=== PATIENT | male | born 1965 | race Caucasian/White ===

== ENCOUNTER 2018-03-03 19:51 | Inpatient (IN) | payer OTHER ==
[2018-03-03 20:20] VITALS: BMI 26.9
[2018-03-03] MEDS ORDERED: MELATONIN 5 MG TABLETS PO PRN (22:00)
--- NOTE | 2018-03-03 22:11 | HP ---
CIWA Score Nausea/Vomitin-No Nausea/No Vomiting Muscle Tremors: 4-Moderate,w/Arms Extend Anxiety: 4-Mod. Anxious/Guarded Agitation: 4-Moderately Restless Paroxysmal Sweats: 3 Orientation: 2-Disoriented Date<2 days Tacttile Disturbances: 1-Very Mild Itch/Numbness Auditory Disturbances: 1-Very Mild Visual Disturbances: 1-Very Mild Sensitivity Headache: 2-Mild CIWA-Ar Total Score: 22 - Admission Criteria OASAS Guidelines: Admission for Medically Managed Detox: Requires at least one of the followin. CIWA greater than 12 2. Seizures within the past 24 hours 3. Delirium tremens within the past 24 hours 4. Hallucinations within the past 24 hours 5. Acute intervention needed for co occurring medical disorder 6. Acute intervention needed for co occurring psychiatric disorder 7. Severe withdrawal that cannot be handled at a lower level of care (continued vomiting, continued diarrhea, abnormal vital signs) requiring intravenous medication and/or fluids 8. Patient presents the following: Seizures, delirium tremens or hallucinations in the past 12 hours, Acute intervention needed for co-occurring med or psych disorder Admission Criteria Met: Admission criteria met Admission ROS [facility] Chief Complaint: C/O WORSENING WITHDRAWAL SX'S. SEEKING DETOX FROM ALCOHOL Allergies/Adverse Reactions: Allergies Allergy/AdvReac Type Severity Reaction Status Date / Time No Known Allergies Allergy Verified 06/18/13 11:51 History of Present Illness: 52 Y.O. MALE WITH HX/O ALCOHOLISM AND METHAMPHETAMINE DEPENDENCE HERE FOR DETOX. CLIENT IS KNOWN TO THIS PROGRAM. LAST HERE 2013. SELF REFERRED TODAY. PRESENTING WITH C/O WORSENING WITHDRAWAL SX'S. CIWA 22. LAST DETOX/REHAB 2017 AT [facility]. CLIENT REPORTS 5 YEARS CLEAN TIME RELAPSING 6 MONTHS AGO. DENIES PAST/PRESENT SI/HI. REPORTS [facility] WHEN "IM HIGH". DENIES SEIZURE D/O. HOMELESS, PUBLIC assistance, unemployed, DENIES LEGALS. PMHX- HTN, HLD PSYCH- BIPOLAR,LICO, DEPRESSION MEDS: DEPAKOTE, SEROQUEL, AMBILIFY, LIPITOR Exam Limitations: No Limitations - Ebola screening Have you traveled outside of the country in the last 21 days: No Have you had contact with anyone from an Ebola affected area: No Have you been sick,other than usual withdrawal symptoms: No Do you have a fever: No - Review of Systems Constitutional: Chills, Loss of Appetite, Malaise, Night Sweats, Changes in sleep EENT: reports: Dental Problems (MISSING TEETH DENUTURES), Other (SORE PALATE) Respiratory: reports: No Symptoms reported Cardiac: reports: No Symptoms Reported GI: reports: Constipated, Nausea, Poor Appetite, Poor Fluid Intake : reports: No Symptoms Reported Musculoskeletal: reports: Back Pain, Joint Pain, Muscle Pain, Neck Pain Integumentary: reports: Flushing Neuro: reports: Headache, Paresthesia Endocrine: reports: No Symptoms Reported Hematology: reports: No Symptoms Reported Psychiatric: reports: Orientated x3, Anxious, Depressed Other Systems: Reviewed and Negative Patient History - Patient Medical History Hx Anemia: No Hx Asthma: No Hx Chronic Obstructive Pulmonary Disease (COPD): No Hx Cancer: No Hx Cardiac Disorders: No Hx Congestive Heart Failure: No Hx Hypertension: Yes Hx Hypercholesterolemia: Yes (LIPITOR 20MG) Hx Pacemaker: No HX Cerebrovascular Accident: No Hx Seizures: No Hx Dementia: No Hx Diabetes: No Hx Gastrointestinal Disorders: No Hx Liver Disease: No Hx Genitourinary Disorders: No Hx Sexually Transmitted Disorders: Yes (Syphilis (treated)) Hx Renal Disease (ESRD): No Hx Thyroid Disease: No Hx Human Immunodeficiency Virus (HIV): No Hx Hepatitis C: No Hx Depression: Yes Hx Suicide Attempt: No Hx Bipolar Disorder: Yes (MANIC) Hx Schizophrenia: No Other Medical History: LICO - Patient Surgical History Past Surgical History: Yes Hx Neurologic Surgery: No Hx Cataract Extraction: No Hx Cardiac Surgery: No Hx Lung Surgery: No Hx Breast Surgery: No Hx Breast Biopsy: No Hx Abdominal Surgery: Yes (LT. INGUINAL HERNIA REPAIR) Hx Appendectomy: No Hx Cholecystectomy: No Hx Genitourinary Surgery: No Hx Orthopedic Surgery: No Anesthesia Reaction: No - PPD History Previous Implant?: Yes Documented Results: Negative w/o proof Implanted On Prior [facility] Admission?: Yes Date: 06/20/13 Results: 0MM PPD to be Administered?: Yes - Smoking Cessation Smoking history: Current every day smoker Have you smoked in the past 12 months: Yes Aproximately how many cigarettes per day: 20 Cigars Per Day: 0 Hx Chewing Tobacco Use: No Initiated information on smoking cessation: Yes 'Breaking Loose' booklet given: 03/03/18 - Substance & Tx. History Hx Alcohol Use: Yes Hx Substance Use: Yes Substance Use Type: Alcohol, Tranquilizers (METH AMPHET) Hx Substance Use Treatment: Yes ( [facility]) - Substances Abused Alcohol Route: Oral Frequency: 3-6 times per week Amount used: Beer 2 x 6 pack, Vodka 2 pints Age of first use: 16 Date of Last Use: 03/03/18 Methamphetamine Route: Injection Frequency: Daily Amount used: 0.5gm -1gm Age of first use: 21 Date of Last Use: 03/03/18 Family Disease History - Family Disease History Family Disease History: Diabetes: Father (ALCOHOL,DRUG), Heart Disease: Grandparent (HTN), Other: Father, Brother (ALCOHOL,DRUG) Admission Physical Exam S - Vital Signs Vital Signs: Vital Signs - 24 hr 03/03/18 20:17 Temperature 98.9 F Pulse Rate 126 H Respiratory 18 Rate Blood Pressure 132/79 - Physical General Appearance: Yes: Appropriately Dressed, Moderate Distress, Tremorous, Irritable, Anxious, Other (FLUSHED) HEENTM: Yes: EOMI, Normocephalic, Normal Voice, ABBEY, Pharynx Normal, Other ( UPPER DENTURES WITH MISSING TEETH DRY MUCUS MEMBRANES) Respiratory: Yes: Chest Non-Tender, Lungs Clear, Normal Breath Sounds, No Respiratory Distress, No Accessory Muscle Use Neck: Yes: No masses,lesions,Nodules, Supple, Trachea in good position, Other ( TATTOO) Breast: Yes: Breast Exam Deferred Cardiology: Yes: Regular Rhythm, S1, S2, Tachycardia Abdominal: Yes: Normal Bowel Sounds, Non Tender, Soft Genitourinary: Yes: Other (NO C/O OFFERED) Back: Yes: Normal Inspection Musculoskeletal: Yes: full range of Motion, Gait Steady Extremities: Yes: Normal Range of Motion, Non-Tender, Tremors Neurological: Yes: Alert, Motor Strength 5/5, Confused (ABOUT DATE), Depressed Affect Integumentary: Yes: Warm (HOT), Other (FLUSHED) Lymphatic: Yes: Within Normal Limits - Diagnostic (1) HTN (hypertension) Current Visit: Yes Status: Acute (2) HLD (hyperlipidemia) Current Visit: Yes Status: Acute (3) At risk for dehydration due to poor fluid intake Current Visit: Yes Status: Acute (4) Substance induced mood disorder Current Visit: Yes Status: Acute (5) Homeless Current Visit: Yes Status: Acute (6) Alcohol dependence with uncomplicated withdrawal Current Visit: Yes Status: Acute (7) LICO (generalized anxiety disorder) Current Visit: Yes Status: Chronic (8) Depression Current Visit: Yes Status: Chronic Qualifiers: Depression Type: unspecified Qualified Code(s): F32.9 - Major depressive disorder, single episode, unspecified (9) Bipolar disorder Current Visit: Yes Status: Chronic Qualifiers: Active/Remission status: currently active Current bipolar episode type: depressed Current episode severity: unspecified Qualified Code(s): F31.30 - Bipolar disorder, current episode depressed, mild or moderate severity, unspecified (10) Hypercholesterolemia Current Visit: Yes Status: Chronic (11) Methamphetamine dependence Current Visit: Yes Status: Acute (12) Nicotine dependence Current Visit: Yes Status: Acute Qualifiers: Nicotine product type: cigarettes Substance use status: uncomplicated Qualified Code(s): F17.210 - Nicotine dependence, cigarettes, uncomplicated Cleared for Admission [facility] - Detox or Rehab [facility] Level of Care: Medically Managed Detox Regimen/Protocol: Sanchez[place] Claeared for Rehab Admission: No S Breath Alcohol Content Breath Alcohol Content: 0 Urine Drug Screen - Results Drug Screen Negative: No Urine Drug Screen Results: AMP-Amphetamines, MET-Methamphetamine, MDMA-Ecstasy
[2018-03-03] MEDS ORDERED: SODIUM PHOSPHATE/NA BIPHOS 133 ML ENEMA PR ONE (22:16)
[2018-03-03] MEDS ORDERED: MAGNESIUM HYDROX 2400MG/30ML ORAL SUSPENSION 30 ML CUP PO PRN (22:17)
[2018-03-03] MEDS ORDERED: MENTHOL/PHENOL 1 EACH UD MM PRN (22:17)
[2018-03-03] MEDS ORDERED: guaiFENesin/D-METHORPHAN HB 10 ML UNIT-DOSE CUPS PO PRN (22:17)
[2018-03-03] MEDS ORDERED: ACETAMINOPHEN 325 MG TABLET (FP) PO PRN (22:17)
[2018-03-03] MEDS ORDERED: LOPERAMIDE HCL 2 MG CAPSULE PO PRN (22:17)
[2018-03-03] MEDS ORDERED: chlordiazePOXIDE HCL 25 MG CAPSULE PO PRN (22:17)
[2018-03-03] MEDS ORDERED: MAG HYDROX/AL HYDROX/SIMETH 30 ML UNIT-DOSE CUP PO PRN (22:17)
[2018-03-03] MEDS ORDERED: hydrOXYzine PAMOATE 50 MG CAPSULE (FP) PO PRN (22:17)
[2018-03-03] MEDS ORDERED: IBUPROFEN 400 MG TABLET (FP) PO PRN (22:17)
[2018-03-03] MEDS ORDERED: P-EPHED 60MG/TRIPROLIDI 2.5MG TABLET PO PRN (22:17)
[2018-03-03] MEDS ORDERED: NICOTINE POLACRILEX 2 MG GUM BC PRN (22:17)
[2018-03-03] MEDS ORDERED: MAGNESIUM CITRATE 300 ML BOTTLE PO PRN (22:17)
[2018-03-04] MEDS: chlordiazePOXIDE HCL 25 MG CAPSULE PO SCH ×5 (00:22→22:05)
[2018-03-04 10:05] LABS: HEMATOCRIT 35.9 % (35.4-49); HEMOGLOBIN 11.8 GM/dL (11.7-16.9); MCH 26.7 pg (25.7-33.7); MCHC 32.9 g/dl (32.0-35.9); MEAN CELL VOLUME 81.1 fl (80-96); MEAN PLT VOLUME 7.7 fl (7.5-11.1); PLATELET COUNT 309 K/MM3 (134-434); RBC 4.43 M/mm3 (4.00-5.60); RDW 14.4 % (11.9-15.9); WHITE BLOOD COUNT 6.1 K/mm3 (4.0-10.0)
[2018-03-04 10:23] LABS: URINE APPEARANCE CLEAR; URINE BILIRUBIN NEGATIVE (<2.0 mg/dL); URINE COLOR YELLOW; URINE GLUCOSE (UA) NEGATIVE (NEGATIVE); URINE KETONE NEGATIVE (NEGATIVE); URINE LEUK ESTERASE NEGATIVE (NEGATIVE); URINE NITRITE NEGATIVE (NEGATIVE); URINE PROTEIN NEGATIVE (NEGATIVE); URINE UROBILINOGEN NEGATIVE mg/dL (0.2-1.0)
[2018-03-04] MEDS: ASPIRIN 81 MG CHEWABLE TABLETS PO SCH (10:36)
[2018-03-04] MEDS: NICOTINE 21 MG/24 HOURS TOPICAL PATCH TD SCH (10:36)
[2018-03-04] MEDS: HYDROCHLOROTHIAZIDE 25 MG TABLET (FP) PO SCH (10:36)
[2018-03-04] MEDS: PRENATAL VITAMINS W/ FOLIC ACID TABLET (FP) PO SCH (10:36)
[2018-03-04 11:09] LABS: ALBUMIN 3.9 g/dl (3.4-5.0); ALK PHOS 89 U/L (45-117); ANION GAP 11 MMOL/L (8-16); BILIRUBIN,TOTAL 1.1 mg/dL (0.2-1); BLOOD UREA NITROGEN 27 mg/dL (7-18); CALCIUM 8.8 mg/dL (8.5-10.1); CHLORIDE 98 mmol/L (98-107); CO2 28 mmol/L (21-32); GLUCOSE,RANDOM 91 mg/dL (74-106); POTASSIUM 3.2 mmol/L (3.5-5.1); SGOT/AST 68 U/L (15-37); SGPT/ALT 42 U/L (13-61); SODIUM 137 mmol/L (136-145); TOT PROT 6.9 g/dl (6.4-8.2)
--- NOTE | 2018-03-04 12:15 | PN ---
[facility] CIWA - CIWA Score Nausea/Vomitin-Mild Nausea/No Vomiting Muscle Tremors: 4-Moderate,w/Arms Extend Anxiety: 4-Mod. Anxious/Guarded Agitation: 3 Paroxysmal Sweats: 1-Minimal Palms Moist Orientation: 1-Uncertain about Date Tacttile Disturbances: 1-Very Mild Itch/Numbness Auditory Disturbances: 1-Very Mild Visual Disturbances: 0-None Headache: 2-Mild CIWA-Ar Total Score: 18 [facility] Progress Note (SOAP) Subjective: tremor sweat restlessness irritable trouble sleep at night anxiety gi distress Objective: 03/04/18 12:13 Vital Signs Temperature 99.1 F 03/04/18 09:19 Pulse Rate 105 H 03/04/18 09:19 Respiratory Rate 18 03/04/18 09:19 Blood Pressure 114/63 03/04/18 09:19 O2 Sat by Pulse Oximetry (%) Laboratory Last Values WBC 6.1 K/mm3 (4.0-10.0) 03/04/18 07:00 RBC 4.43 M/mm3 (4.00-5.60) 03/04/18 07:00 Hgb 11.8 GM/dL (11.7-16.9) 03/04/18 07:00 Hct 35.9 % (35.4-49) 03/04/18 07:00 MCV 81.1 fl (80-96) 03/04/18 07:00 MCH 26.7 pg (25.7-33.7) 03/04/18 07:00 MCHC 32.9 g/dl (32.0-35.9) 03/04/18 07:00 RDW 14.4 % (11.9-15.9) 03/04/18 07:00 Plt Count 309 K/MM3 (134-434) 03/04/18 07:00 MPV 7.7 fl (7.5-11.1) 03/04/18 07:00 Sodium 137 mmol/L (136-145) 03/04/18 07:00 Potassium 3.2 mmol/L (3.5-5.1) L 03/04/18 07:00 Chloride 98 mmol/L (98-107) 03/04/18 07:00 Carbon Dioxide 28 mmol/L (21-32) 03/04/18 07:00 Anion Gap 11 MMOL/L (8-16) 03/04/18 07:00 BUN 27 mg/dL (7-18) H 03/04/18 07:00 Creatinine 1.0 mg/dL (0.55-1.3) 03/04/18 07:00 Creat Clearance w eGFR > 60 (>60) 03/04/18 07:00 Random Glucose 91 mg/dL (74-106) 03/04/18 07:00 Calcium 8.8 mg/dL (8.5-10.1) 03/04/18 07:00 Total Bilirubin 1.1 mg/dL (0.2-1) H 03/04/18 07:00 AST 68 U/L (15-37) H 03/04/18 07:00 ALT 42 U/L (13-61) 03/04/18 07:00 Alkaline Phosphatase 89 U/L (45-117) 03/04/18 07:00 Total Protein 6.9 g/dl (6.4-8.2) 03/04/18 07:00 Albumin 3.9 g/dl (3.4-5.0) 03/04/18 07:00 Urine Color Yellow 03/04/18 08:00 Urine Appearance Clear 03/04/18 08:00 Urine pH 5.0 (5.0-8.0) 03/04/18 08:00 Ur Specific [place] 1.023 (1.010-1.035) 03/04/18 08:00 Urine Protein Negative (NEGATIVE) 03/04/18 08:00 Urine Glucose (UA) Negative (NEGATIVE) 03/04/18 08:00 Urine Ketones Negative (NEGATIVE) 03/04/18 08:00 Urine Blood Negative (NEGATIVE) 03/04/18 08:00 Urine Nitrite Negative (NEGATIVE) 03/04/18 08:00 Urine Bilirubin Negative (<2.0 mg/dL) 03/04/18 08:00 Urine Urobilinogen Negative mg/dL (0.2-1.0) 03/04/18 08:00 Ur Leukocyte Esterase Negative (NEGATIVE) 03/04/18 08:00 RPR Titer Nonreactive (NONREACTIVE) 03/04/18 07:00 lab noted low K+ Assessment: 03/04/18 12:14 withdrawal sx low K+ Plan: continue deetox K+ supplement repeat K+
[2018-03-04] MEDS: POTASSIUM CHLORIDE TABS 20 MEQ TABLET.ER (FP) PO SCH ×2 (14:33→22:05)
[2018-03-04] MEDS: ARIPiprazole 5 MG TABLET (FP) PO SCH (18:28)
[2018-03-04] MEDS ORDERED: MELATONIN 5 MG TABLETS PO PRN (18:38)
--- NOTE | 2018-03-04 18:41 | PN ---
S Progress Note Note: Patient requesting to leave AMA. States 'the system is not working for me'. Admits to being homeless. Discussed the non-compliance w/ NRT and the subsequent associated withdrawals. Provider discussed the mental cravings he is having and how they are triggering his desire to leave. Patient agreed to stay.
[2018-03-04] MEDS: ATORVASTATIN CA 40 MG TABLET (FP) PO SCH (22:05)
[2018-03-04] MEDS: THIAMINE HCL 100 MG TABLET (FP) PO SCH (22:05)
[2018-03-05] MEDS: chlordiazePOXIDE HCL 25 MG CAPSULE PO SCH ×3 (06:05→17:27)
[2018-03-05] MEDS: ASPIRIN 81 MG CHEWABLE TABLETS PO SCH (10:15)
[2018-03-05] MEDS: PRENATAL VITAMINS W/ FOLIC ACID TABLET (FP) PO SCH (10:15)
[2018-03-05] MEDS: POTASSIUM CHLORIDE TABS 20 MEQ TABLET.ER (FP) PO SCH ×2 (10:15→22:39)
[2018-03-05] MEDS: HYDROCHLOROTHIAZIDE 25 MG TABLET (FP) PO SCH (10:15)
[2018-03-05] MEDS: ARIPiprazole 5 MG TABLET (FP) PO SCH (10:15)
--- NOTE | 2018-03-05 10:28 | PN ---
MAG[facility] Progress Note Note: patient reported that he has bipolar treated with depakote since 02/27/18 last dose of taking depakote unknown psychiatric referral with depakote serum level pending
[2018-03-05] MEDS: NICOTINE 21 MG/24 HOURS TOPICAL PATCH TD SCH (11:34)
--- NOTE | 2018-03-05 12:15 | PN ---
S CIWA - CIWA Score Nausea/Vomitin Muscle Tremors: 3 Anxiety: 0-No Anxiety, at Ease Agitation: 0-Normal Activity Paroxysmal Sweats: 3 Orientation: 0-Oriented Tacttile Disturbances: 2-Mild Itch/Numbness/Burn Auditory Disturbances: 0-None Visual Disturbances: 2-Mild Sensitivity Headache: 0-None Present CIWA-Ar Total Score: 13 [facility] Progress Note (SOAP) Subjective: Body Aches, Nausea, Tremors, Fatigue, Sweating. Objective: PATIENT A & O X 3. IN NO ACUTE DISTRESS. 03/05/18 12:15 Vital Signs Temperature 97.7 F 03/05/18 09:59 Pulse Rate 101 H 03/05/18 09:59 Respiratory Rate 18 03/05/18 09:59 Blood Pressure 134/74 03/05/18 09:59 O2 Sat by Pulse Oximetry (%) Laboratory Tests 03/04/18 03/04/18 03/04/18 07:00 07:00 07:00 WBC 6.1 RBC 4.43 Hgb 11.8 Hct 35.9 MCV 81.1 MCH 26.7 MCHC 32.9 RDW 14.4 Plt Count 309 MPV 7.7 Sodium 137 Potassium 3.2 L Chloride 98 Carbon Dioxide 28 Anion Gap 11 BUN 27 H Creatinine 1.0 Creat Clearance w eGFR > 60 Random Glucose 91 Calcium 8.8 Total Bilirubin 1.1 H AST 68 H ALT 42 Alkaline Phosphatase 89 Total Protein 6.9 Albumin 3.9 Urine Color Urine Appearance Urine pH Ur Specific [place] Urine Protein Urine Glucose (UA) Urine Ketones Urine Blood Urine Nitrite Urine Bilirubin Urine Urobilinogen Ur Leukocyte Esterase RPR Titer Nonreactive 03/04/18 08:00 WBC RBC Hgb Hct MCV MCH MCHC RDW Plt Count MPV Sodium Potassium Chloride Carbon Dioxide Anion Gap BUN Creatinine Creat Clearance w eGFR Random Glucose Calcium Total Bilirubin AST ALT Alkaline Phosphatase Total Protein Albumin Urine Color Yellow Urine Appearance Clear Urine pH 5.0 Ur Specific [place] 1.023 Urine Protein Negative Urine Glucose (UA) Negative Urine Ketones Negative Urine Blood Negative Urine Nitrite Negative Urine Bilirubin Negative Urine Urobilinogen Negative Ur Leukocyte Esterase Negative RPR Titer LABS NOTED. Assessment: 03/05/18 12:15 WITHDRAWAL SYMPTOMS. HYPOKALEMIA. 03/05/18 12:16 Plan: WITHDRAWAL SYMPTOMS. INCREASE DAILY PO FLUID INTAKE. CONTINUE K-DUR.
--- NOTE | 2018-03-05 15:49 | CONSULT ---
[facility] Psychiatric Consult - Data Date of interview: 03/05/18 Admission source: [facility] Identifying data: Patient is a 52 year old single male, without children, unemployed, homeless, and not currently receiving financial assistance. This is one of multiple admissions for patient. Patient admitted to for alcohol and methamphetamine dependence. Substance Abuse History: Smoking Cessation. Smoking history: Current every day smoker. Have you smoked in the past 12 months: Yes. Aproximately how many cigarettes per day: 20. Cigars Per Day: 0. Hx Chewing Tobacco Use: No. Initiated information on smoking cessation: Yes. 'Breaking Loose' booklet given : 03/03/18. - Substance & Tx. History. Hx Alcohol Use: Yes. Hx Substance Use : Yes. Substance Use Type: Alcohol, Tranquilizers (METH AMPHET). Hx Substance Use Treatment: Yes ([facility]). - Substances Abused. Alcohol. Route: Oral. Frequency: 3-6 times per week. Amount used: Beer 2 x 6 pack, Vodka 2 pints. Age of first use: 16. Date of Last Use: 03/03/18. Methamphetamine. Route: Injection. Frequency: Daily. Amount used: 0.5gm -1gm. Age of first use: 21. Date of Last Use: 03/03/18 Medical History: hypercholesteroelmia, hypertension, h/o syphilis (treated), Left inguinal hernia repair Psychiatric History: Patient reports h/o approximately five psychiatric hospitalizations, most recently in November of 2017 at [facility] to address paranoia and hallucinations secondary to drug induced psychosis. Patient has also been hospitalized at [facility] and at hospitals in the [facility]. Patient is receiving outpatient psychiatric care at [facility] addiction/recovery outpatient services. Diagnosis of Bipolar disorder and Generalized anxiety disorder. Patient is prescribed Abilify 5mg daily + Depakote 250mg daily + 500mg HS + Seroquel 50mg HS. Patient denies h/o suicide attempt. At present, Mr. Herrera reports stable mood. Physical/Sexual Abuse/Trauma History: denies. Mental Status Exam - Mental Status Exam Alert and Oriented to: Time, Place, Person Cognitive Function: Good Patient Appearance: Well Groomed Mood: Euthymic Affect: Appropriate Patient Behavior: Appropriate, Cooperative Speech Pattern: Clear Voice Loudness: Normal Thought Process: Intact, Goal Oriented Thought Disorder: Not Present Hallucinations: Denies Suicidal Ideation: Denies Homicidal Ideation: Denies Insight/Judgement: Poor Sleep: Poorly Appetite: Fair Muscle strength/Tone: Normal Gait/Station: Normal Psychiatric Findings - Problem List ([place] 1, 2,3) (1) Alcohol dependence with uncomplicated withdrawal Current Visit: Yes Status: Acute (2) Methamphetamine dependence Current Visit: Yes Status: Acute (3) Bipolar disorder Current Visit: Yes Status: Chronic Qualifiers: Active/Remission status: currently active Current bipolar episode type: depressed Current episode severity: unspecified Qualified Code(s): F31.30 - Bipolar disorder, current episode depressed, mild or moderate severity, unspecified (4) LICO (generalized anxiety disorder) Current Visit: Yes Status: Chronic (5) Nicotine dependence Current Visit: Yes Status: Chronic Qualifiers: Nicotine product type: cigarettes Substance use status: uncomplicated Qualified Code(s): F17.210 - Nicotine dependence, cigarettes, uncomplicated - Initial Treatment Plan Initial Treatment Plan: Psychoeducation provided. Detoxification in progress. Will order Depakote 250mg daily + 500mg HS + Seroquel 50mg HS. Abilify 5mg ordered [address] Rhodes. Valproic acid level : 20.7. Benefits and side efffects discussed. Verbal consent given.
[2018-03-05] MEDS ORDERED: QUEtiapine FUMARATE 50 MG TABLET PO SCH (22:00)
[2018-03-05] MEDS ORDERED: DIVALPROEX SODIUM 500 MG TABLET E.C. PO SCH (22:00)
[2018-03-05] MEDS: chlordiazePOXIDE 5 MG CAPSULE PO SCH (22:39)
[2018-03-05] MEDS: ATORVASTATIN CA 40 MG TABLET (FP) PO SCH (22:39)
[2018-03-05] MEDS: THIAMINE HCL 100 MG TABLET (FP) PO SCH (22:39)
[2018-03-06] MEDS: chlordiazePOXIDE 5 MG CAPSULE PO SCH ×3 (05:33→18:15)
[2018-03-06 09:17] VITALS: PULSE 103
[2018-03-06] MEDS ORDERED: DIVALPROEX SODIUM 250 MG TABLET E.C. PO SCH (10:00)
[2018-03-06] MEDS: POTASSIUM CHLORIDE TABS 20 MEQ TABLET.ER (FP) PO SCH (10:56)
[2018-03-06] MEDS: HYDROCHLOROTHIAZIDE 25 MG TABLET (FP) PO SCH (10:56)
[2018-03-06] MEDS: PRENATAL VITAMINS W/ FOLIC ACID TABLET (FP) PO SCH (10:56)
[2018-03-06] MEDS: ASPIRIN 81 MG CHEWABLE TABLETS PO SCH (10:56)
[2018-03-06] MEDS: NICOTINE 21 MG/24 HOURS TOPICAL PATCH TD SCH (10:58)
[2018-03-06] MEDS: ARIPiprazole 5 MG TABLET (FP) PO SCH (10:58)
--- NOTE | 2018-03-06 11:39 | EKG ---
Test Reason : Blood Pressure : / mmHG Vent. Rate : 110 BPM Atrial Rate : 110 BPM P-R Int : 134 ms QRS Dur : 092 ms QT Int : 374 ms P-R-T Axes : 062 015 057 degrees QTc Int : 506 ms SINUS TACHYCARDIA VOLTAGE CRITERIA FOR LEFT VENTRICULAR HYPERTROPHY NONSPECIFIC T WAVE ABNORMALITY ABNORMAL ECG NO PREVIOUS ECGS AVAILABLE Confirmed by ANN RIDLEY MD ([id number]) on 03/06/2018 11:39:29 AM Referred By: Confirmed By:ANN RIDLEY MD
[2018-03-06 13:15] VITALS: BP 129/78; TEMP 98.6
--- NOTE | 2018-03-06 17:05 | PN ---
[facility] Progress Note (SOAP) Subjective: Fatigue, Sweating, Tremors. Objective: PATIENT A & O X 3. IN NO ACUTE DISTRESS. 03/06/18 17:06 Vital Signs Temperature 98.6 F 03/06/18 13:14 Pulse Rate 103 H 03/06/18 13:14 Respiratory Rate 18 03/06/18 13:14 Blood Pressure 129/78 03/06/18 13:14 O2 Sat by Pulse Oximetry (%) Laboratory Tests 03/04/18 03/04/18 03/04/18 07:00 07:00 07:00 WBC 6.1 RBC 4.43 Hgb 11.8 Hct 35.9 MCV 81.1 MCH 26.7 MCHC 32.9 RDW 14.4 Plt Count 309 MPV 7.7 Sodium 137 Potassium 3.2 L Chloride 98 Carbon Dioxide 28 Anion Gap 11 BUN 27 H Creatinine 1.0 Creat Clearance w eGFR > 60 Random Glucose 91 Calcium 8.8 Total Bilirubin 1.1 H AST 68 H ALT 42 Alkaline Phosphatase 89 Total Protein 6.9 Albumin 3.9 Urine Color Urine Appearance Urine pH Ur Specific [place] Urine Protein Urine Glucose (UA) Urine Ketones Urine Blood Urine Nitrite Urine Bilirubin Urine Urobilinogen Ur Leukocyte Esterase Valproic Acid RPR Titer Nonreactive 03/04/18 03/05/18 03/06/18 08:00 11:15 07:00 WBC RBC Hgb Hct MCV MCH MCHC RDW Plt Count MPV Sodium Potassium 4.1 Chloride Carbon Dioxide Anion Gap BUN Creatinine Creat Clearance w eGFR Random Glucose Calcium Total Bilirubin AST ALT Alkaline Phosphatase Total Protein Albumin Urine Color Yellow Urine Appearance Clear Urine pH 5.0 Ur Specific [place] 1.023 Urine Protein Negative Urine Glucose (UA) Negative Urine Ketones Negative Urine Blood Negative Urine Nitrite Negative Urine Bilirubin Negative Urine Urobilinogen Negative Ur Leukocyte Esterase Negative Valproic Acid 20.7 L RPR Titer LABS NOTED. Assessment: 03/06/18 17:06 WITHDRAWAL SYMPTOMS. Plan: CONTINUE DETOX. INCREASE DAILY PO FLUID INTAKE. ENCOURAGE AMBULATION.
[2018-03-06] MEDS ORDERED: chlordiazePOXIDE HCL 10 MG CAPSULE PO SCH (23:00)
== END 2018-03-06 16:45 | disposition left against medical advice (07) | DRG 770 ==
LOC: YASAS 19:51 → Y3N 22:27
PROC: HZ2ZZZZ Detoxification Services for Substance Abuse Treatment (ICD-10-PCS; principal; 2018-03-03)
DX: F10.230 Alcohol dependence with withdrawal, uncomplicated (principal); F15.20 Other stimulant dependence, uncomplicated; F17.210 Nicotine dependence, cigarettes, uncomplicated; F19.24 Other psychoactive substance dependence with psychoactive substance-induced mood disorder; F41.1 Generalized anxiety disorder; I10 Essential (primary) hypertension; E78.5 Hyperlipidemia, unspecified; R63.8 Other symptoms and signs concerning food and fluid intake; E87.6 Hypokalemia; Z87.438 Personal history of other diseases of male genital organs; Z59.0 Homelessness
CPT/HCPCS: 36415; 80053; 80164; 81003; 84132; 85027; 86593; 93005; 93010

== ENCOUNTER 2018-03-06 17:24 | Observation (INO) | payer OTHER ==
[2018-03-06 17:36] VITALS: BMI 26.6
[2018-03-06] MEDS ORDERED: SODIUM CHLORIDE 1,000 ML IV STA (20:05)
--- NOTE | 2018-03-06 20:07 | PDOC ---
History of Present Illness - General Chief Complaint: Psychiatric Stated Complaint: REFILL MED/PSYCH Time Seen by Provider: 03/06/18 19:11 - History of Present Illness Initial Comments: 52-year-old male with PMH of hypertension, depression, and substance abuse presenting himself for suicidal ideation. Patient states that he was at [facility] detox for the past four days for methamphetamine and alcohol use. Last used methamphetamine while he was at the facility two or three days ago. Last used alcohol five days ago, about five pints of vodka. Upon hearing that he would be discharged from [facility] tomorrow morning, patient checked himself out around 4:30pm. His housing social studies teacher, Rashida Hernandez, learned of his situation and out of concern for him paid for a cab for him to get to this ED. Patient states his suicidal plan is to get on the streets and take lots of pills that he would be able to obtain from a drug dealer. Endorses poor sleep, loss of interest in things he used to enjoy, feelings of guilt, low energy, and low concentration. Reports normal appetite. Before [facility], patient was attending an intensive outpatient program at [facility] for substance abuse but was unable to be placed at a senior care house and so he went to detox. No fevers, chills, chest pain, or shortness of breath. Past History - Past Medical History Allergies/Adverse Reactions: Allergies Allergy/AdvReac Type Severity Reaction Status Date / Time No Known Allergies Allergy Verified 03/06/18 17:29 Home Medications: Ambulatory Orders RX: Aripiprazole [Abilify -] 5 mg PO DAILY 03/03/18 RX: Aspirin 81 mg PO DAILY 03/03/18 RX: Atorvastatin Ca [Lipitor] 40 mg PO HS 03/03/18 RX: Hydrochlorothiazide 25 mg PO DAILY 03/03/18 RX: Divalproex [Depakote -] 250 mg PO DAILY 03/05/18 RX: Divalproex [Depakote -] 500 mg PO HS 03/05/18 RX: Quetiapine Fumarate [Seroquel -] 50 mg PO HS 03/05/18 Anemia: No Asthma: No Cancer: No Cardiac Disorders: No CVA: No COPD: No CHF: No Dementia: No Diabetes: No GI Disorders: No Disorders: No HTN: Yes Hypercholesterolemia: Yes (LIPITOR 20MG) Kidney Stones: No Liver Disease: No Seizures: No Thyroid Disease: No - Surgical History Abdominal Surgery: Yes (LT. INGUINAL HERNIA REPAIR) Appendectomy: No Cardiac Surgery: No Cholecystectomy: No Lung Surgery: No Neurologic Surgery: No Orthopedic Surgery: No - Reproductive History Testicular Surgery: No - Suicide/Smoking/Psychosocial Hx Smoking History: Unknown if ever smoked Have you smoked in the past 12 months: Yes Number of Cigarettes Smoked Daily: 20 Cigars Per Day: 0 'Breaking Loose' booklet given: 03/03/18 Hx Alcohol Use: Yes Drug/Substance Use Hx: Yes (crystal meth, alcohol) Substance Use Type: Alcohol, Tranquilizers (METH AMPHET) Hx Substance Use Treatment: Yes ([facility]) Review of Systems - Review of Systems Comments:: Constitutional: no fever, no chills HEENT: no throat pain, no dysphagia Cardiovascular: no chest pain, no palpitations Respiratory: +cough, no shortness of breath Gastrointestinal: no abdominal pain, +nausea Genitourinary: no dysuria, no frequency Musculoskeletal: no myalgia, no arthralgia Skin: no rash, no itching Psych: +suicidal ideation, no homicidal ideation *Physical Exam - Vital Signs Last Vital Signs Temp Pulse Resp BP Pulse Ox 98.3 F 111 H 20 167/99 99 03/06/18 17:34 03/06/18 17:34 03/06/18 17:34 03/06/18 17:34 03/06/18 17:34 - Physical Exam Comments: General: Awake, alert, and fully oriented, in no acute distress Head: No signs of trauma Eyes: EOMI, sclera anicteric ENT: Moist mucus membranes Neck: Normal ROM, supple Lungs: Lungs clear, Normal breath sounds Cardio: Regular rhythm, S1 and S2 present Abdomen: Soft, nontender. No guarding, no rebound, no masses Extremities: Normal range of motion, Distal pulses present SKIN: Warm, Dry, normal turgor Neurologic: Cranial nerves II through XII grossly intact. Normal speech Moderate Sedation - Procedure Monitoring Vital Signs: Procedure Monitoring Vital Signs Temperature 98.3 F 03/06/18 17:34 Pulse Rate 111 H 03/06/18 17:34 Respiratory Rate 20 03/06/18 17:34 Blood Pressure 167/99 03/06/18 17:34 O2 Sat by Pulse Oximetry (%) 99 03/06/18 17:34 ED Treatment Course - LABORATORY CBC & Chemistry Diagram: 03/06/18 20:17 03/06/18 20:17 Medical Decision Making - Medical Decision Making 52-year-old male with PMH of hypertension, depression, and substance abuse presenting himself for suicidal ideation. -Paged psychiatry -Updated patient regarding observation status and since we do not have a dedicated psychiatry unit, he will be staying in the ED. Patient voiced discomfort with the stretcher he is laying on and expressed a desire to leave the hospital since he is so uncomfortable: "I need to get out of here." I explained to the patient that he is not safe to discharge. -No leukocytosis or anemia. TSH normal. UA negative for infection. UTox positive for amphetamines and benzodiazepines. -Tylenol given for patient's right arm pain 03/06/18 22:00 EKG: rate 108, QTc 447, Sinus tachycardia Patient sleeping in stretcher. 03/07/18 03:20 *DC/Admit/Observation/Transfer Diagnosis at time of Disposition: Suicidal ideation - Discharge Dispostion Condition at time of disposition: Good - Referrals - Patient Instructions - Post Discharge Activity
[2018-03-06 21:05] LABS: BASO % 0.7 % (0-2.0); HEMATOCRIT 36.7 % (35.4-49); HEMOGLOBIN 12.6 GM/dL (11.7-16.9); LYMPH % 27.7 % (8-40); MCHC 34.5 g/dl (32.0-35.9); MEAN CELL VOLUME 81.2 fl (80-96); MEAN PLT VOLUME 7.4 fl (7.5-11.1); NEUT % 62.6 % (42.8-82.8); PLATELET COUNT 359 K/MM3 (134-434); RBC 4.52 M/mm3 (4.00-5.60); RDW 14.3 % (11.9-15.9); WHITE BLOOD COUNT 8.1 K/mm3 (4.0-10.0)
[2018-03-06 21:31] LABS: ALBUMIN 3.5 g/dl (3.4-5.0); ALK PHOS 97 U/L (45-117); ANION GAP 7 MMOL/L (8-16); BILIRUBIN,TOTAL 0.2 mg/dL (0.2-1); BLOOD UREA NITROGEN 14 mg/dL (7-18); CALCIUM 8.6 mg/dL (8.5-10.1); CHLORIDE 104 mmol/L (98-107); CO2 27 mmol/L (21-32); CREATININE 0.8 mg/dL (0.55-1.3); GLUCOSE,RANDOM 130 mg/dL (74-106); POTASSIUM 4.2 mmol/L (3.5-5.1); SGOT/AST 24 U/L (15-37); SGPT/ALT 39 U/L (13-61); SODIUM 138 mmol/L (136-145); TOT PROT 6.8 g/dl (6.4-8.2)
--- NOTE | 2018-03-06 21:39 | PDOC ---
Attending Attestation - Resident Resident Name: Magaly Callejas - ED Attending Attestation I have performed the following: I have examined & evaluated the patient, The case was reviewed & discussed with the resident, I agree w/resident's findings & plan, Exceptions are as noted - HPI HPI: 03/06/18 21:21 The patient is a 52-year-old male with a significant past medical history of hypertension, depression, and substance abuse who presents to the ED for suicidal ideation. He states he was at [facility] detox for the past four days for methamphetamine and alcohol use, and after learning about his discharge from [facility] tomorrow morning, patient endorsed to [facility] staff that he had a plan to take lots of pills and kill himself. Pt denies any history of SA. The patient denies chest pain, shortness of breath, headache and dizziness. The patient denies fever, chills, nausea, vomit, diarrhea and constipation. The patient denies dysuria, frequency, urgency and hematuria. Allergies: NKDA - Physicial Exam PE: 03/06/18 21:22 GENERAL: Awake, alert, and fully oriented, in no acute distress. HEAD: No signs of trauma EYES: PERRLA, EOMI, sclera anicteric, conjunctiva clear ENT: Auricles normal inspection, hearing grossly normal, nares patent, oropharynx clear without exudates. Moist mucosa NECK: Nontender, no stepoffs, Normal ROM, supple, no lymphadenopathy, JVD, or masses LUNGS: Breath sounds equal, clear to auscultation bilaterally. No wheezes, and no crackles HEART: Regular rate and rhythm, normal S1 and S2, no murmurs, rubs or gallops ABDOMEN: Soft, nontender, normoactive bowel sounds. No guarding, no rebound. No masses EXTREMITIES: Normal range of motion, no edema. No clubbing or cyanosis. No cords, erythema, or tenderness NEUROLOGICAL: Cranial nerves II through XII intact. 5/5 strength and sensation in all extremities, Normal speech, normal gait, normal cerebellar function SKIN: Warm, Dry, normal turgor, no rashes or lesions noted. - Medical Decision Making 03/06/18 21:39 52 M recently admitted to [facility] for detox, who, upon being informed of his discharge tomorrow, began to endorse suicidal ideation. - Labs - Medical clearance - Psych consult 03/07/18 02:10 Labs wnl Pt medically cleared. Awaiting psych eval. Pt signed out to overnight team, pending psych eval.
[2018-03-06] MEDS ORDERED: ACETAMINOPHEN 1000 MG/100 ML VIAL (NON FORMULARY) IVPB ONE (22:26)
[2018-03-06] MEDS ORDERED: ACETAMINOPHEN INJECTION 100 ML IVPB ONE (22:28)
[2018-03-06 23:07] LABS: URINE APPEARANCE CLEAR; URINE BILIRUBIN NEGATIVE (<2.0 mg/dL); URINE COLOR LTYELLOW; URINE GLUCOSE (UA) NEGATIVE (NEGATIVE); URINE KETONE NEGATIVE (NEGATIVE); URINE LEUK ESTERASE NEGATIVE (NEGATIVE); URINE NITRITE NEGATIVE (NEGATIVE); URINE PROTEIN NEGATIVE (NEGATIVE); URINE UROBILINOGEN NEGATIVE mg/dL (0.2-1.0)
[2018-03-06 23:38] LABS: COCAINE, UR NEGATIVE ng/ml (CUTOFF=300); METHADONE, UR NEGATIVE ng/ml (CUTOFF=300); OPIATES, URI NEGATIVE ng/ml (CUTOFF=300); PHENCYCLIDINE,URINE NEGATIVE ng/ml (CUTOFF=25); URINE BARBITURATES NEGATIVE ng/ml (CUTOFF=200)
[2018-03-06 23:41] LABS: URINE AMPHETAMINES POSITIVE ng/ml (CUTOFF=500)
[2018-03-06 23:42] LABS: URINE BENZODIAZEPINES POSITIVE ng/ml (CUTOFF=200)
--- NOTE | 2018-03-07 07:20 | PDOC ---
*Physical Exam - Vital Signs Last Vital Signs Temp Pulse Resp BP Pulse Ox 97.8 F 92 H 20 123/76 98 03/07/18 05:38 03/07/18 05:38 03/07/18 05:38 03/07/18 05:38 03/07/18 05:38 ED Treatment Course - LABORATORY CBC & Chemistry Diagram: 03/06/18 20:17 03/06/18 20:17 - ADDITIONAL ORDERS Additional order review: Laboratory Results 03/06/18 03/06/18 03/06/18 20:17 20:17 20:17 Sodium Potassium Chloride Carbon Dioxide Anion Gap BUN Creatinine Creat Clearance w eGFR Random Glucose Calcium Total Bilirubin AST ALT Alkaline Phosphatase Total Protein Albumin TSH 0.89 Urine Color Ltyellow Urine Appearance Clear Urine pH 7.0 D Ur Specific [place] 1.014 Urine Protein Negative Urine Glucose (UA) Negative Urine Ketones Negative Urine Blood Negative Urine Nitrite Negative Urine Bilirubin Negative Urine Urobilinogen Negative Ur Leukocyte Esterase Negative Opiates Screen Negative Methadone Screen Negative Barbiturate Screen Negative Phencyclidine Screen Negative Ur Amphetamines Screen Positive A* MDMA (Ecstasy) Screen Negative Benzodiazepines Screen Positive A* Cocaine Screen Negative U Marijuana (THC) Screen Negative Alcohol, Quantitative < 3.0 03/06/18 20:17 Sodium 138 Potassium 4.2 Chloride 104 Carbon Dioxide 27 Anion Gap 7 L BUN 14 Creatinine 0.8 Creat Clearance w eGFR > 60 Random Glucose 130 H Calcium 8.6 Total Bilirubin 0.2 AST 24 ALT 39 Alkaline Phosphatase 97 Total Protein 6.8 Albumin 3.5 TSH Urine Color Urine Appearance Urine pH Ur Specific [place] Urine Protein Urine Glucose (UA) Urine Ketones Urine Blood Urine Nitrite Urine Bilirubin Urine Urobilinogen Ur Leukocyte Esterase Opiates Screen Methadone Screen Barbiturate Screen Phencyclidine Screen Ur Amphetamines Screen MDMA (Ecstasy) Screen Benzodiazepines Screen Cocaine Screen U Marijuana (THC) Screen Alcohol, Quantitative 03/06/18 20:17 RBC 4.52 MCV 81.2 MCHC 34.5 RDW 14.3 MPV 7.4 L Neutrophils % 62.6 Lymphocytes % 27.7 Monocytes % 6.0 Eosinophils % 3.0 Basophils % 0.7 - Medications Given in the ED: ED Medications Discontinued Medications Generic Name Dose Route Start Last Admin Trade Name Freq PRN Reason Stop Dose Admin Acetaminophen 1,000 mg 03/06/18 22:26 03/06/18 22:33 Ofirmev Injection - IVPB 03/06/18 22:27 1,000 mg ONCE ONE Administration Sodium Chloride 1,000 mls @ 1,000 mls/hr 03/06/18 20:05 03/06/18 20:42 Normal Saline - IV 03/06/18 21:04 1,000 mls/hr ASDIR STA Administration Medical Decision Making - Medical Decision Making 03/07/18 07:[address] Callejas. Patient is a 52 yo male w/ pmh of HTN, Depression, substance abuse presenting for suicidal ideation. Patient reports being at detox for 4 days for meth/alcohol use (last 2-3 days ago). Last alcohol use 5 days ago. Patient checked himself out of detox at 1630 yesterday. Reports he now plans to "take lots of pills" from drug dealer to harm himself. Patient currently awaiting evaluation by psych who is aware. 03/07/18 11:09 Admitting patient for obs as has been in ED for 17+ hours. *DC/Admit/Observation/Transfer Diagnosis at time of Disposition: Suicidal ideation - Discharge Dispostion Decision to Admit order: Yes - Referrals - Patient Instructions - Post Discharge Activity Forms/Work/School Notes: My Personal Safety Plan
--- NOTE | 2018-03-07 08:40 | EKG ---
Test Reason : Blood Pressure : / mmHG Vent. Rate : 108 BPM Atrial Rate : 108 BPM P-R Int : 134 ms QRS Dur : 088 ms QT Int : 334 ms P-R-T Axes : 052 013 043 degrees QTc Int : 447 ms SINUS TACHYCARDIA OTHERWISE NORMAL ECG WHEN COMPARED WITH ECG OF 04-MAR-2018 07:04, NO SIGNIFICANT CHANGE WAS FOUND Confirmed by ANN RIDLEY MD ([id number]) on 03/07/2018 8:40:42 AM Referred By: Confirmed By:ANN RIDLEY MD
[2018-03-07 11:42] VITALS: BP 110/66; PULSE 95; TEMP 98.1
[2018-03-07] MEDS ORDERED: DIVALPROEX SODIUM 250 MG TABLET E.C. PO ONE (12:17)
[2018-03-07] MEDS ORDERED: ARIPiprazole 5 MG TABLET (FP) PO ONE (12:17)
[2018-03-07] MEDS ORDERED: ASPIRIN COATED 81 MG TABLET.EC PO ONE (12:17)
[2018-03-07] MEDS ORDERED: HYDROCHLOROTHIAZIDE 25 MG TABLET (FP) PO ONE (12:17)
[2018-03-07] MEDS ORDERED: SERTRALINE HCL 50 MG TABLET (FP) ONE (12:22)
[2018-03-07] MEDS ORDERED: ASPIRIN 81 MG CHEWABLE TABLETS ONE (12:22)
[2018-03-07] MEDS ORDERED: HYDROCHLOROTHIAZIDE 25 MG TABLET (FP) ONE (12:22)
[2018-03-07] MEDS ORDERED: ARIPiprazole 5 MG TABLET (FP) ONE (12:23)
[2018-03-07] MEDS ORDERED: DIVALPROEX SODIUM 125 MG TABLET E.C. ONE ×2 (12:23→12:27)
--- NOTE | 2018-03-07 13:25 | PN ---
Teaching Attending Note Name of Resident: Darrell Tsang ATTENDING PHYSICIAN STATEMENT I saw and evaluated the patient. I reviewed the resident's note and discussed the case with the resident. I agree with the resident's findings and plan as documented. SUBJECTIVE: CC: very depressed HPI: 52 y/o man with h/o depression, bipolar, HTN, HLP, polysubstance abuse, who left [facility]MA from [facility] yesterday and came to [facility] for SI. He states he is very depressed. He is homeless [facility] ( while [facility] records indicate that he was given all his psych meds) . he was getting detox and reached librium of 15 mg when he left AMA. he stated that he had thoughts of hurting himself , but now he has no thoughts of hurting or killing himself. he had a drink yesterday ( pint of Vodka) . he claims he is shaky and wants librium OBJECTIVE: NAD . awake, alert , oriented and cooperative. started using the "F" word when Lina Carter told him he did not need inpatient Psych , and that he is homeless he should not go to the streets CV: RRR, NO MRG Lungs: CTAB ABd: soft, ND, minimal discomfort in periumbilical area , Nl BS Ext : no edema . No tremor HEENT: MMM, round pupils, no facial droop. labs and urine tox reviewed ASSESSMENT AND PLAN: 52 y/o man with h/o depression, bipolar, HTN, HLP, polysubstance abuse, who left [facility]MA from [facility] yesterday and came to [facility] for SI. 1- SI : cleared by Psyc as non danger to himself. case d/w Dr. Carter. will ask him to continue his out pt meds and follow with [facility] where he gets his psych care. 2- HTN: cont med of HCTZ 3- Alcohol abuse: no signs or sx of withdrawal. drug seeking behaviour ( claims shaking and wants libium ) - last drink yesterday 4- Dispo : dc home
[2018-03-07] MEDS ORDERED: HEPARIN NA (PORCINE) 5,000 UNITS/ML 1ML VIAL SQ SCH (13:30)
--- NOTE | 2018-03-07 13:34 | CON.PSY ---
Psychiatry Consult Chief Complaint: dorothea lied about not grttimg his Psych mesat [facility] while being detoxed. Patrient also reported that he did notv complete detox. patient however completed detox and wass given his Psych meds. History of Bipolar Disorder on Abilify and Depakote. - Previous Psychiatric Treatment Outpatient: Less than 6 mos ago Inpatient: One prior admission - Previous Substance Abuse Treatment Inpatient: Within the last 12 months - Reason for Previous Treatment Reason for Previous Treatment: Biploar Illness, Alcohol Abuse - Allergies Allergies: Allergies Allergy/AdvReac Type Severity Reaction Status Date / Time No Known Allergies Allergy Verified 03/06/18 17:29 - Current Living Status Usual Living Arrangement: Alone - Current Mental Status Evaluation Appearance: Well Groomed Attitude: Cooperative - Affect Affect: Constrictive Appropriateness: Appropriate to Content - Mood Mood: Euthymic - Speech/Language Expressive: Coherent - Psychomotor Activity Psychomotor Activity: Normal - Thought Process Thought Process: Intact - Thought Content Hallucinations: Absent Delusions: Absent - Self Perception Self Perception: No Impairment - Cognition Attention: Alert Orientation: Time Memory, Immediate Recall: Intact Memory, Short Term: 3/3 Memory, Remote with Promptin/3 - Concentration Serial Sevens Intact: Yes Simple Calculations Intact: Yes - Abstraction Proverb Interpretation: Intact Judgement: Minimally Impaired - Insight Insight: Intact - Impulse Control Impulse Control: Minimally Impaired - Suicidal Ideation Suicidal Ideation: No - Homicidal Ideation Homicidal Ideation: No Assessment/Plan 1) Marquis is not suicidal or Homivcidal at this time. 2) discharge from ER when medically stable. 3) Follow up at [facility].
--- NOTE | 2018-03-07 13:47 | HP ---
CHIEF COMPLAINT: suicidal ideation PCP: HISTORY OF PRESENT ILLNESS: Pt is a 52 y/o M with Hx bipolar depression and substance abuse who presented to ED from [facility] for suicidality. Pt was almost done with his detox when he started expressing desire to hurt himself. On my interview, pt expressed desire to hurt himself. Denies plan. Denies desire to hurt others. No other complaints/issues. Pt denies fever chills, nausea, vomiting, diarrhea, pain. ER course was notable for: (1) NS, home meds (2) (3) Recent Travel: denies PAST MEDICAL HISTORY: HTN, Bipolar depression, Substance abuse, HLD PAST SURGICAL HISTORY: denies Social History: Smokin cig/d since teenager Alcohol: denies Drugs: "uppers" including amphetamines Family History: father with lung CA at 74 and bipolar depression Allergies No Known Allergies Allergy (Verified 03/06/18 17:29) HOME MEDICATIONS: Home Medications Medication Instructions Recorded Aripiprazole [Abilify -] 5 mg PO DAILY 03/03/18 Aspirin 81 mg PO DAILY 03/03/18 Atorvastatin Ca [Lipitor] 40 mg PO HS 03/03/18 Hydrochlorothiazide 25 mg PO DAILY 03/03/18 Divalproex [Depakote -] 250 mg PO DAILY 03/05/18 Divalproex [Depakote -] 500 mg PO HS 03/05/18 Quetiapine Fumarate [Seroquel -] 50 mg PO HS 03/05/18 REVIEW OF SYSTEMS CONSTITUTIONAL: Absent: fever, chills, diaphoresis, generalized weakness, malaise, loss of appetite, weight change HEENT: Absent: rhinorrhea, nasal congestion, throat pain, throat swelling, difficulty swallowing, mouth swelling, ear pain, eye pain, visual changes CARDIOVASCULAR: Absent: chest pain, syncope, palpitations, irregular heart rate, lightheadedness , peripheral edema RESPIRATORY: Absent: cough, shortness of breath, dyspnea with exertion, orthopnea, wheezing, stridor, hemoptysis GASTROINTESTINAL: Absent: abdominal pain, abdominal distension, nausea, vomiting, diarrhea, constipation, melena, hematochezia GENITOURINARY: Absent: dysuria, frequency, urgency, hesitancy, hematuria, flank pain, genital pain MUSCULOSKELETAL: Absent: myalgia, arthralgia, joint swelling, back pain, neck pain SKIN: Absent: rash, itching, pallor HEMATOLOGIC/IMMUNOLOGIC: Absent: easy bleeding, easy bruising, lymphadenopathy, frequent infections ENDOCRINE: Absent: unexplained weight gain, unexplained weight loss, heat intolerance, cold intolerance NEUROLOGIC: Absent: headache, focal weakness or paresthesias, dizziness, unsteady gait, seizure, mental status changes, bladder or bowel incontinence PSYCHIATRIC: depression, suicidal Absent: anxiety, or homicidal ideation, hallucinations. PHYSICAL EXAMINATION Vital Signs - 24 hr 03/06/18 03/07/18 03/07/18 17:34 05:38 11:40 Temperature 98.3 F 97.8 F 98.1 F Pulse Rate 111 H Pulse Rate [ 92 H 95 H Left Radial] Respiratory 20 20 16 Rate Blood Pressure 167/99 Blood Pressure 123/76 110/66 [Left Arm] O2 Sat by Pulse 99 98 99 Oximetry (%) Gen: NAD, AAO x 3, not intoxicated, not anxious, able to laugh and make jokes HEENT: NCAT, PERRL Neck: supple, no jvd Cardio: rrr, normal s1s2, no mrg Pulm: cta b/l, no rales/ronchi Abd: soft, no bs, nontender Ext: no edema Laboratory Results - last 24 hr 03/06/18 03/06/18 03/06/18 20:17 20:17 20:17 WBC 8.1 RBC 4.52 Hgb 12.6 Hct 36.7 MCV 81.2 MCH 28.0 MCHC 34.5 RDW 14.3 Plt Count 359 MPV 7.4 L Absolute Neuts (auto) 5.1 Neutrophils % 62.6 Lymphocytes % 27.7 Monocytes % 6.0 Eosinophils % 3.0 Basophils % 0.7 Nucleated RBC % 0 Sodium 138 Potassium 4.2 Chloride 104 Carbon Dioxide 27 Anion Gap 7 L BUN 14 Creatinine 0.8 Creat Clearance w eGFR > 60 Random Glucose 130 H Calcium 8.6 Total Bilirubin 0.2 AST 24 ALT 39 Alkaline Phosphatase 97 Total Protein 6.8 Albumin 3.5 TSH Urine Color Urine Appearance Urine pH Ur Specific [place] Urine Protein Urine Glucose (UA) Urine Ketones Urine Blood Urine Nitrite Urine Bilirubin Urine Urobilinogen Ur Leukocyte Esterase Opiates Screen Negative Methadone Screen Negative Barbiturate Screen Negative Phencyclidine Screen Negative Ur Amphetamines Screen Positive A* MDMA (Ecstasy) Screen Negative Benzodiazepines Screen Positive A* Cocaine Screen Negative U Marijuana (THC) Screen Negative Alcohol, Quantitative 03/06/18 03/06/18 20:17 20:17 WBC RBC Hgb Hct MCV MCH MCHC RDW Plt Count MPV Absolute Neuts (auto) Neutrophils % Lymphocytes % Monocytes % Eosinophils % Basophils % Nucleated RBC % Sodium Potassium Chloride Carbon Dioxide Anion Gap BUN Creatinine Creat Clearance w eGFR Random Glucose Calcium Total Bilirubin AST ALT Alkaline Phosphatase Total Protein Albumin TSH 0.89 Urine Color Ltyellow Urine Appearance Clear Urine pH 7.0 D Ur Specific [place] 1.014 Urine Protein Negative Urine Glucose (UA) Negative Urine Ketones Negative Urine Blood Negative Urine Nitrite Negative Urine Bilirubin Negative Urine Urobilinogen Negative Ur Leukocyte Esterase Negative Opiates Screen Methadone Screen Barbiturate Screen Phencyclidine Screen Ur Amphetamines Screen MDMA (Ecstasy) Screen Benzodiazepines Screen Cocaine Screen U Marijuana (THC) Screen Alcohol, Quantitative < 3.0 ASSESSMENT/PLAN: Pt is a 52 y/o M with PMH bipolar depression who was sent to ED for suicidality. #Suicidal ideation -1:1 -psychiatry #Bipolar depression -c/w rob stallworth, seroquel #HTN -c/w HCTZ #HLD -c/w statin #FEN -not on fluids #Dispo -obs pending psych eval Darrell Tsang MD PGY-2 IM Visit type - Emergency Visit Emergency Visit: Yes ED Registration Date: 03/07/18 Care time: The patient presented to the Emergency Department on the above date and was hospitalized for further evaluation of their emergent condition. - New Patient This patient is new to me today: Yes Date on this admission: 03/07/18 - Critical Care Critical Care patient: No
--- NOTE | 2018-03-07 13:50 | DS ---
Physical Exam: SUBJECTIVE: Patient seen and examined at bedside. No complaints. OBJECTIVE: Vital Signs Period Temp Pulse Resp BP Sys/[place] Pulse Ox Last 24 Hr 97.8 F-98.3 F 92-111 16-20 110-167/66-99 98-99 PHYSICAL EXAM Gen: NAD, AAO x 3, not intoxicated, not anxious, able to laugh and make jokes HEENT: NCAT, PERRL Neck: supple, no jvd Cardio: rrr, normal s1s2, no mrg Pulm: cta b/l, no rales/ronchi Abd: soft, no bs, nontender Ext: no edema LABS Laboratory Results - last 24 hr 03/06/18 03/06/18 03/06/18 20:17 20:17 20:17 WBC 8.1 RBC 4.52 Hgb 12.6 Hct 36.7 MCV 81.2 MCH 28.0 MCHC 34.5 RDW 14.3 Plt Count 359 MPV 7.4 L Absolute Neuts (auto) 5.1 Neutrophils % 62.6 Lymphocytes % 27.7 Monocytes % 6.0 Eosinophils % 3.0 Basophils % 0.7 Nucleated RBC % 0 Sodium 138 Potassium 4.2 Chloride 104 Carbon Dioxide 27 Anion Gap 7 L BUN 14 Creatinine 0.8 Creat Clearance w eGFR > 60 Random Glucose 130 H Calcium 8.6 Total Bilirubin 0.2 AST 24 ALT 39 Alkaline Phosphatase 97 Total Protein 6.8 Albumin 3.5 TSH Urine Color Urine Appearance Urine pH Ur Specific [place] Urine Protein Urine Glucose (UA) Urine Ketones Urine Blood Urine Nitrite Urine Bilirubin Urine Urobilinogen Ur Leukocyte Esterase Opiates Screen Negative Methadone Screen Negative Barbiturate Screen Negative Phencyclidine Screen Negative Ur Amphetamines Screen Positive A* MDMA (Ecstasy) Screen Negative Benzodiazepines Screen Positive A* Cocaine Screen Negative U Marijuana (THC) Screen Negative Alcohol, Quantitative 03/06/18 03/06/18 20:17 20:17 WBC RBC Hgb Hct MCV MCH MCHC RDW Plt Count MPV Absolute Neuts (auto) Neutrophils % Lymphocytes % Monocytes % Eosinophils % Basophils % Nucleated RBC % Sodium Potassium Chloride Carbon Dioxide Anion Gap BUN Creatinine Creat Clearance w eGFR Random Glucose Calcium Total Bilirubin AST ALT Alkaline Phosphatase Total Protein Albumin TSH 0.89 Urine Color Ltyellow Urine Appearance Clear Urine pH 7.0 D Ur Specific [place] 1.014 Urine Protein Negative Urine Glucose (UA) Negative Urine Ketones Negative Urine Blood Negative Urine Nitrite Negative Urine Bilirubin Negative Urine Urobilinogen Negative Ur Leukocyte Esterase Negative Opiates Screen Methadone Screen Barbiturate Screen Phencyclidine Screen Ur Amphetamines Screen MDMA (Ecstasy) Screen Benzodiazepines Screen Cocaine Screen U Marijuana (THC) Screen Alcohol, Quantitative < 3.0 HOSPITAL COURSE: Date of Admission:03/07/18 Date of Discharge: 03/07/18 Pt is a pleasant 52 y/o gentleman who was sent to ED from [facility] for suicidality. He had prior care at [facility]. Pt was seen by psychiatry and found not to have any suicidal/homocidal ideation. Pt is stable for discharge home with follow up at [facility]. Minutes to complete discharge: 35 Discharge Summary Reason For Visit: SUICIDAL IDEATION Current Active Problems Suicidal ideation (Acute) Condition: Good - Instructions Diet, Activity, Other Instructions: You were in the hospital because of suicidal ideation. It is very important that you take all your medications as directed. Make sure you follow up with your doctor's appointments. If you feel like hurting yourself or others, please return to the emergency department. You should not drink alcohol or use illicit drugs as these can be very dangerous for your well-being. Referrals: Lavonne Cohen MD [Staff Physician] - Disposition: TRANSFER ACUTE CARE/OTHER HOSP - Home Medications Comprehensive Discharge Medication List: Ambulatory Orders Aripiprazole [Abilify -] 5 mg PO DAILY 03/03/18 Aspirin 81 mg PO DAILY 03/03/18 Atorvastatin Ca [Lipitor] 40 mg PO HS 03/03/18 Hydrochlorothiazide 25 mg PO DAILY 03/03/18 Divalproex [Depakote -] 250 mg PO DAILY 03/05/18 Divalproex [Depakote -] 500 mg PO HS 03/05/18 Quetiapine Fumarate [Seroquel -] 50 mg PO HS 03/05/18 This patient is new to me today: Yes Date on this admission: 03/07/18 Emergency Visit: Yes ED Registration Date: 03/07/18 Care time: The patient presented to the Emergency Department on the above date and was hospitalized for further evaluation of their emergent condition. Critical Care patient: No - Discharge Referral Referred to [facility] No
== END 2018-03-07 13:25 | disposition home or self-care (01) ==
LOC: JER 17:24 → JERBED 03-07 11:11
PROVIDERS: ADMIT Internal Medicine; ATTEND Internal Medicine
PROC: 3E033NZ Introduction of Analgesics, Hypnotics, Sedatives into Peripheral Vein, Percutaneous Approach (ICD-10-PCS; principal; 2018-03-07)
PROC: 3E0337Z Introduction of Electrolytic and Water Balance Substance into Peripheral Vein, Percutaneous Approach (ICD-10-PCS; 2018-03-07)
DX: R45.851 Suicidal ideations (principal); I10 Essential (primary) hypertension; E78.5 Hyperlipidemia, unspecified; F31.9 Bipolar disorder, unspecified; F15.20 Other stimulant dependence, uncomplicated; F10.20 Alcohol dependence, uncomplicated
CPT/HCPCS: 36415; 80053; 80307; 81003; 84443; 85025; 87086; 93005; 93010; 96361; 96374; 99283-25; G0378; J0131; J7030